=== PATIENT | female | born 1980 | race Caucasian/White ===

== ENCOUNTER → 2021-06-22 00:13 | Outpatient (CLI) | payer OTHER, SELFPAY ==
[2021-06-22 18:04] LABS: SARS-CoV-2 RNA PCR Negative
== END ==
PROVIDERS: PCP Family Medicine; Visit Provider Otolaryngology
DX: Z01.812 Encounter for preprocedural laboratory examination (principal); Z20.822 Contact with and (suspected) exposure to COVID-19
CPT/HCPCS: C9803; U0003; U0005

== ENCOUNTER 2021-06-25 01:05 | Day surgery (SDC) | payer OTHER, SELFPAY ==
[2021-06-18 09:38] VITALS: BMI 32.5
--- NOTE | 2021-06-24 06:24 | PM.HPGS ---
History of Present Illness History of Present Illness Consent: Risks, benefits, and alternatives have been discussed and questions answered. Patient agrees to proceed with procedure. Chief complaint: Bilateral Chronic Otitis Media Narrative: Pamela Cade is a 40 year old female 10 tubes for a long period of time starting to give her trouble she admitted for josemanuel Review of Systems Review of Systems: All systems reviewed & are unremarkable except as noted in HPI and below PMFSH Social History Social History Smoking packs per day: 0.5 Smoking cigarettes per day: 10.0 Years smoked: 15 Smoking pack-years: 7.50 Smoking status: Former smoker Smoking end date: 09/28/14 Alcohol intake: never Substance use: current Substance use type: marijuana Other substance usage details: SMOKE Last use: 06/17/21 Spiritual care concerns: No Meds Home Medications and Allergies Home Medications Medication Instructions Recorded Confirmed Type No Home Medications 04/23/21 06/18/21 History Allergies Allergy/AdvReac Type Severity Reaction Status Date / Time No Known Allergies Allergy Verified 06/18/21 09:38 Exam Narrative: chest clear heart rhythm arms abdomen soft extremities negative tubes in place on ara
--- NOTE | 2021-06-24 06:25 | PM.HPGS ---
History of Present Illness History of Present Illness Consent: Risks, benefits, and alternatives have been discussed and questions answered. Patient agrees to proceed with procedure. Chief complaint: Bilateral Chronic Otitis Media Narrative: Pamela Cade is a 40 year old female [facility] Social History Social History Smoking packs per day: 0.5 Smoking cigarettes per day: 10.0 Years smoked: 15 Smoking pack-years: 7.50 Smoking status: Former smoker Smoking end date: 09/28/14 Alcohol intake: never Substance use: current Substance use type: marijuana Other substance usage details: SMOKE Last use: 06/17/21 Spiritual care concerns: No Meds Home Medications and Allergies Home Medications Medication Instructions Recorded Confirmed Type No Home Medications 04/23/21 06/18/21 History Allergies Allergy/AdvReac Type Severity Reaction Status Date / Time No Known Allergies Allergy Verified 06/18/21 09:38 Assessment and Plan Additional Plan plan is to remove both myringotomy tubes
--- NOTE | 2021-06-25 05:54 | WPDHPUPDATE1 ---
History and Physical Update Update Date/Time: 06/25/21 05:54 History and Physical has been reviewed, including an updated exam of the patient. There are NO changes in the patient's condition. Risks, benefits, and alternatives have been discussed and questions answered. Patient agrees to proceed with procedure.
[2021-06-25 06:53] VITALS: BP 120/79; PULSE 76; RESP 16; TEMP 36.2; O2SAT 100; BMI 33.9
--- NOTE | 2021-06-25 07:45 | P.PNAN_ITS ---
Anes - Initial Pre Proc Eval Procedure: Operation Date: 06/25/21 08:45 Proposed Procedures p Removal Bilateral Myringotomy Tubes, Bilateral Myringoplasty with Paper Patch - Otoniel Weinberg MD Date/Time: 06/25/21 07:45 Surgeon: Otoniel Weinberg MD Pre Op Diagnosis: Bilateral Chronic Otitis Media Patient Data Age: 40 Gender: F Height: 1.63 m Weight: 86 kg Allergies Allergy/AdvReac Type Severity Reaction Status Date / Time No Known Allergies Allergy Verified 06/25/21 07:21 Home Medications Medication Instructions Recorded Confirmed Type No Home Medications 04/23/21 06/25/21 History Patient hx anesthesia problems: none Family hx anesthesia problems: none Results Review: All pre-operative results and documents have been reviewed as part of the pre-operative evaluation. [facility] Past Medical History Medical History (Updated 06/25/21 @ 07:45 by Jermaine Traore MD) Obesity Surgical History Surgical History (Updated 06/25/21 @ 07:45 by Jermaine Traore MD) H/O breast augmentation History of placement of ear tubes Hx of tonsillectomy Social History Social History Smoking packs per day: 0.5 Smoking cigarettes per day: 10.0 Years smoked: 15 Smoking pack-years: 7.50 Smoking status: Former smoker Smoking end date: 09/28/14 Alcohol intake: never Substance use: current Substance use type: marijuana Other substance usage details: SMOKE Last use: 06/17/21 Living arrangements: with friend(s) Spiritual care concerns: No Anes - Eval Final PreProcedure Day of Procedure 06/25/21 07:45 Patient weight: obese Lungs: clear to auscultation Airway: Mallampati scale class II Neurological: alert and oriented Last oral intake: >/= 8 hours ASA classification: II Results Review: All pre-operative results and documents have been reviewed as part of the pre-operative evaluation. Informed Consent: The patient's anesthetic plan and its attendant risks and benefits were discussed with the patient/family/POA. Questions were solicited and answers provided to the satisfaction of the patient/family/POA.
[2021-06-25] MEDS: LACTATED RINGERS 1,000 ML 30 ML IV CONT (08:00)
--- NOTE | 2021-06-25 08:35 | W.PM.PROC2 ---
Procedure Note - Detailed Date of Procedure 06/25/21 Pre-op Diagnosis Bilateral Chronic Otitis Media Post-op Diagnosis same Procedure Performed Removal bilateral T tubes placement of paper patches Surgeon Otoniel Weinberg MD Anesthesia general Description of Procedure Patient was prepped and draped usual fashion right ear was inspected a T-tube was removed and a paper patch placed on left ear was inspected T tubes removed and paper patch placed on patient awakened returned to recovery good condition Disposition PACU
[2021-06-25 08:42] VITALS: BP 125/81; PULSE 93; RESP 20; TEMP 36.4; O2SAT 100
[2021-06-25 08:55] VITALS: BP 94/66; PULSE 76; RESP 20; O2SAT 100
[2021-06-25 09:10] VITALS: BP 99/63; PULSE 71; RESP 14; O2SAT 97
[2021-06-25 09:15] VITALS: BP 101/71; PULSE 66; RESP 16
== END 2021-06-25 09:35 | disposition home or self-care (01) ==
PROVIDERS: PCP Family Medicine; Visit Provider Otolaryngology
PROC: (CPT 69424; principal; 2021-06-25 08:45)
DX: H72.93 Unspecified perforation of tympanic membrane, bilateral (principal); H66.93 Otitis media, unspecified, bilateral; Z87.891 Personal history of nicotine dependence; F12.90 Cannabis use, unspecified, uncomplicated; E66.9 Obesity, unspecified; Z68.33 Body mass index [BMI] 33.0-33.9, adult
CPT/HCPCS: 69610; A9270; J1100; J2250; J2405; J2704; J3010; J7120